=== PATIENT | female | born 1950 | race Caucasian/White ===

== ENCOUNTER 2017-09-28 02:05 | Inpatient (IN) | payer OTHER ==
[~2017-09-28] VITALS: Ht 162.6 cm; Wt 59.0 kg
[2017-09-28 02:07] VITALS: Ht 162.6 cm; Wt 59.0 kg
[2017-09-28 02:47] LABS: BASOPHIL % 0.4 % (0-2); PLATELET COUNT 248 x10^3mcL (130-400); RED CELL DISTRIBUTION WIDTH 12.2 % (11.5-14.5)
[2017-09-28 02:59] LABS: CALCIUM 8.4 mg/dL (8.5-10.1); CARBON DIOXIDE 29.4 mmol/L (21-32); CHLORIDE SERUM 104 mmol/L (98-107); CREATININE SERUM 0.8 mg/dL (0.6-1.0); GFR1 > 60 mL/min; GLUCOSE SERUM 87 mg/dL (74-106); SODIUM SERUM 139 mmol/L (136-145)
[2017-09-28 03:04] LABS: ALBUMIN 3.4 g/dL (3.4-5.0); ALKALINE PHOSPHATASE 82 U/L (46-116); ALT/SGPT 29 U/L (14-59); AST/SGOT 24 U/L (15-37); BILIRUBIN TOTAL 0.4 mg/dL (0.20-1.00); TOTAL PROTEIN, SERUM 6.7 g/dL (6.4-8.2)
[2017-09-28] MEDS ORDERED: PAXIL10 MG PO ×2 (04:52→06:23)
[2017-09-28 05:56] VITALS: BP 125/50
[2017-09-28 05:59] VITALS: BP 125/50
[2017-09-28 06:08] LABS: MAGNESIUM 2.1 mg/dL (1.8-2.4); PHOSPHOROUS 3.8 mg/dL (2.5-4.9)
[2017-09-28 06:21] LABS: FREE T4 1.04 ng/dL (0.76-1.46); T4(THYROXINE) 8.9 ug/dL (4.7-13.3)
[2017-09-28 10:29] VITALS: BP 119/49
[2017-09-28 19:21] VITALS: BP 126/58
[2017-09-28 20:41] LABS: microscopic required? NO
[2017-09-28 20:59] LABS: UA SPECIFIC GRAVITY 1.015 (1.005-1.035); urine erythrocyte NEGATIVE (NEGATIVE)
[2017-09-28 21:06] LABS: AMPHETAMINE QUAL UR NONE DETECTED (NEG <=1000)
[2017-09-28 22:58] VITALS: BP 115/47
[2017-09-29 05:55] VITALS: BP 123/53
[2017-09-29 06:27] LABS: BASOPHIL % 0.6 % (0-2); PLATELET COUNT 242 x10^3mcL (130-400); RED CELL DISTRIBUTION WIDTH 12.3 % (11.5-14.5)
[2017-09-29 07:10] LABS: CALCIUM 8.4 mg/dL (8.5-10.1); CARBON DIOXIDE 23.9 mmol/L (21-32); CHLORIDE SERUM 108 mmol/L (98-107); CREATININE SERUM 0.6 mg/dL (0.6-1.0); GFR1 > 60 mL/min; GLUCOSE SERUM 77 mg/dL (74-106); PHOSPHOROUS 3.6 mg/dL (2.5-4.9); POTASSIUM SERUM 4.8 mmol/L (3.5-5.1); SODIUM SERUM 140 mmol/L (136-145)
[2017-09-29 10:33] VITALS: BP 111/57
[2017-09-29] MEDS ORDERED: METOPROLOL SUCC50 M2 PO (12:11)
[2017-09-29] MEDS ORDERED: VITC PO (12:14)
[2017-09-29] MEDS ORDERED: COLACE100 MG PO (12:14)
[2017-09-29] MEDS ORDERED: FERROUS SULFAT325 M2 PO (12:14)
[2017-09-29 12:44] VITALS: BP 111/57
[2017-09-29 13:24] VITALS: BP 129/53
== END 2017-09-29 13:36 | disposition home or self-care (01) | DRG 310 ==
LOC: ED 02:05 → DU 04:43
PROVIDERS: Emergency Medicine; Family Medicine
DX: I47.1 Supraventricular tachycardia (principal); D64.9 Anemia, unspecified; F32.9 Major depressive disorder, single episode, unspecified; Z68.22 Body mass index [BMI] 22.0-22.9, adult; Z85.43 Personal history of malignant neoplasm of ovary
CPT/HCPCS: 83880; 84439; J7030